=== PATIENT | female | born 1985 | race Two or more races ===

== ENCOUNTER 2019-06-21 21:50 | Emergency (ER) | payer MEDICAID, OTHER ==
[~2019-06-21] VITALS: Ht 160 cm; Wt 74.8 kg
[~2019-06-21 21:50] MED LIST: PREN-96 PO
[2019-06-22 00:47] VITALS: BP 117/73
== END 2019-06-22 01:36 | disposition home or self-care (01) ==
LOC: ER 21:55
DX: J06.9 Acute upper respiratory infection, unspecified (principal); J40 Bronchitis, not specified as acute or chronic; Z90.49 Acquired absence of other specified parts of digestive tract; Z90.89 Acquired absence of other organs

== ENCOUNTER 2020-12-26 20:16 | Emergency (ER) | payer OTHER ==
[~2020-12-26] VITALS: Ht 160 cm; Wt 74.8 kg
[2020-12-26 20:16] VITALS: BP 125/86
== END 2020-12-27 00:27 | disposition home or self-care (01) ==
LOC: ER 20:19
DX: M54.5 Low back pain (principal); R10.30 Lower abdominal pain, unspecified; N93.9 Abnormal uterine and vaginal bleeding, unspecified; Z90.89 Acquired absence of other organs; Z90.49 Acquired absence of other specified parts of digestive tract; Z88.2 Allergy status to sulfonamides; Z88.8 Allergy status to other drugs, medicaments and biological substances; V43.62XA Car passenger injured in collision with other type car in traffic accident, initial encounter; Y93.89 Activity, other specified; Y92.410 Unspecified street and highway as the place of occurrence of the external cause; Y99.8 Other external cause status
CPT/HCPCS: 36415; 74176; 84702

== ENCOUNTER 2024-03-25 22:03 | Emergency (ER) | payer MEDICAID, OTHER ==
[~2024-03-25] VITALS: Ht 160 cm; Wt 85.0 kg
[2024-03-25 22:08] VITALS: BP 122/85; PULSE 89; RESP 16; TEMP 98.3; O2SAT 99
== END 2024-03-26 00:27 | disposition home or self-care (01) ==
LOC: ER 22:03
DX: S40.021A Contusion of right upper arm, initial encounter (principal); Z90.49 Acquired absence of other specified parts of digestive tract; Z90.89 Acquired absence of other organs; Z88.1 Allergy status to other antibiotic agents; Z88.2 Allergy status to sulfonamides; X58.XXXA Exposure to other specified factors, initial encounter; Y93.89 Activity, other specified; Y92.89 Other specified places as the place of occurrence of the external cause; Y99.8 Other external cause status